=== PATIENT | female | born 1970 | race Caucasian/White ===

== ENCOUNTER 2018-03-31 10:51 | Emergency (ER) | payer MEDICARE, MEDICAID ==
[2018-03-31] MEDS ORDERED: HYDROcodone/Acetaminophen 5/325 mg Tablet ONE (11:10)
[2018-03-31] MEDS ORDERED: Ciprofloxacin 500 MG TAB ONE (11:10)
[2018-03-31] MEDS ORDERED: Adacel (T-DAP) 0.5 ML VIAL ONE (11:26)
--- NOTE | 2018-03-31 12:01 | RAD ---
RADIOGRAPH LEFT FOOT 3 VIEWS: HISTORY: A 47-year-old female status post puncture wound to the plantar aspect of the foot due to stepping on nail. FINDINGS: There is no radiopaque foreign body or subcutaneous emphysema. No fracture or destructive osseous le ivan. Focal sclerosis at lateral aspect of base of 2nd proximal phalanx. Moderate-sized plantar and posterior calcaneal enthesophytes. No fracture or destructive osseous lesion. IMPRESSION: No metallic foreign body visualized. POS: [facility]
== END 2018-03-31 11:58 | disposition home or self-care (01) ==
LOC: BURERS 10:51
DX: S91.332A Puncture wound without foreign body, left foot, initial encounter (principal); F41.9 Anxiety disorder, unspecified; E10.9 Type 1 diabetes mellitus without complications; F32.9 Major depressive disorder, single episode, unspecified; Z79.899 Other long term (current) drug therapy; W22.8XXA Striking against or struck by other objects, initial encounter
CPT/HCPCS: 90471; 90715